=== PATIENT | male | born 1945 | race Hispanic/Latino ===

== ENCOUNTER 2018-06-25 16:19 | Emergency (ER) | payer MEDICARE, BC ==
[2018-06-25 16:30] VITALS: BMI 27.9
--- NOTE | 2018-06-25 16:55 | ED PDOC ---
Lower Extremity Pain/Injury Time Seen by Provider: 06/25/18 16:36 Chief Complaint (Nursing): Lower Extremity Problem/Injury Additional Complaint(s): 73 y/o male with PMH of b/l LEs DVT on blood thinner, BPH, dyslipidemia, chronic lower back pain due to sciatica, depression and anxiety presented to ER c/o one day hx of severe left thigh cramping, pain and swelling. As per patient, pain started last night all the sudden and pain seems like same as his previous DVT pain. Pain is 10/10, radiating from thigh to ankle and associated with thigh swelling. Patient reports he is physically active at home, had surgical left elbow cyst removed last month, denies any SOB, chest pain or dizziness but reports hx of anxiety. Denies any recent long period of immobilization, or trauma to the leg. Patient is currently on Xeralto. 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 [employer] ; daughter Delisa Tel ; [phone] ROS as per HPI, otherwise negative Past Medical History Vital Signs: Last Vital Signs Temp 97.6 F 06/25/18 16:28 Pulse 83 06/25/18 16:28 Resp 18 06/25/18 16:28 BP 116/69 06/25/18 16:28 Pulse Ox 97 06/25/18 16:28 - Medical History PMH: Anxiety, Arthritis, Back Problems, Depression, Deep Vein Thrombosis, HTN, Hypercholesterolemia Denies: HIV, Chronic Kidney Disease - Surgical History Surgical History: Cholecystectomy - Home Medications Home Medications: Ambulatory Orders Medication Instructions Recorded Alprazolam [Xanax] 0.5 mg PO QID PRN 03/07/15 Atenolol [Tenormin] 25 mg PO DAILY 03/07/15 Bifidobacterium Breve/Bifido2 1 tab PO DAILY 03/07/15 [Adult Probiotic] Fenofibrate [Tricor] 400 mg PO HS 03/07/15 Finasteride [Proscar] 5 mg PO HS 03/07/15 Multimineral/Multivitamin 1 tab PO DAILY 03/07/15 [Therapeutic-M Tab] [id number]-6-Ybga Ethyl Esters [OMEGA 3] 500 mg PO DAILY 03/07/15 Oxycodone HCl/Acetaminophen 1 tab PO Q6H PRN 03/07/15 [Percocet 5-325 mg Tablet] Sertraline Hydrochloride 100 mg PO DAILY 03/07/15 [Sertraline] Simvastatin [Zocor] 40 mg PO HS 03/07/15 Tamsulosin HCl 0.4 mg PO HS 03/07/15 Rivaroxaban [Xarelto] 15 mg PO BID #42 tab 03/08/15 - Allergies Allergies/Adverse Reactions: Allergies Allergy/AdvReac Type Severity Reaction Status Date / Time No Known Allergies Allergy Verified 06/25/18 16:33 Wells Criteria for PE - Wells Criteria for Pulmonary Embolism Clinical Signs and Symptoms of DVT: Yes P.E is #1 Diagnosis, or Equally Likely: No Heart Rate >100: No Immobilization at least 3 days;Surgery previous 4 weeks: No Total Score: 3 Review of Systems Constitutional: Negative for: Fever Eyes: Negative for: Pain ENT: Negative for: Ear Pain Cardiovascular: Negative for: Chest Pain, Palpitations, Orthopnea Respiratory: Negative for: Cough, Shortness of Breath Gastrointestinal: Negative for: Nausea, Vomiting, Abdominal Pain, Diarrhea Genitourinary Male: Negative for: Dysuria Musculoskeletal: Positive for: Leg Pain (left thigh ). Negative for: Neck Pain Neurological: Negative for: Weakness, Numbness Psych: Positive for: Anxiety Physical Exam - Physical Exam Appears: Positive for: No Acute Distress Head Exam: Positive for: NORMAL INSPECTION Skin: Positive for: Normal Color, Warm Eye Exam: Positive for: Normal appearance ENT: Positive for: Normal ENT Inspection Neck: Positive for: Normal, Painless ROM Cardiovascular/Chest: Positive for: Regular Rate, Rhythm. Negative for: JVD Respiratory: Positive for: Normal Breath Sounds. Negative for: Decreased Breath Sounds, Accessory Muscle Use, Crackles Gastrointestinal/Abdominal: Positive for: Normal Exam, Soft. Negative for: Tenderness Back: Positive for: Normal Inspection. Negative for: L CVA Tenderness Extremity: Positive for: Normal ROM, Tenderness (left thigh ), Calf Tenderness (mild on left ), Capillary Refill (normal), Swelling (left thigh, no erythema, Hoaman sign negative ). Negative for: Pedal Edema Neurologic/Psych: Positive for: Alert, Oriented. Negative for: Motor/Sensory D eficits - Laboratory Results Result Diagrams: 06/25/18 17:03 06/25/18 17:03 - ECG O2 Sat by Pulse Oximetry: 97 - Progress ED Course And Treament: 73 y/o male with PMH of b/l LEs DVT on blood thinner, BPH, dyslipidemia, chronic lower back pain due to sciatica, depression and anxiety presented to ER c/o one day hx of severe left thigh cramping, pain and swelling. - R/o DVT/ PE - CBC, CMP - EKG - Doppler U/S left lower leg - CT angio PE protocol - reexamine Case discussed with Dr. Gutiérrez CBC, CMP and coag reviewed Low K+ Oral Potassium given - Dopper U/S reviewed: No DVT - EKG normal Case discussed with Brock Re-evaluation Time: 19:01 Condition: Re-examined Disposition - Disposition Forms: [employer] (Bel[place]ian)
[2018-06-25 17:08] LABS: BASO % 0.4 % (0.0-2.0); EOS # 0.2 K/uL (0.0-0.7); EOS % 3.3 % (0.0-4.0); HEMOGLOBIN 15.4 g/dL (12.0-18.0); LYMPH # 1.6 K/uL (1.0-4.3); LYMPH % 22.2 % (20.0-40.0); MEAN CELL VOLUME 88.7 fl (80.0-94.0); MEAN CORPUSCULAR HEMOGLOBIN 29.8 pg (27.0-31.0); MEAN CORPUSCULAR HGB CONC 33.6 g/dL (33.0-37.0); MEAN PLATELET VOLUME 7.7 fl (7.2-11.7); MONO # 0.5 K/uL (0.0-0.8); MONO % 6.2 % (0.0-10.0); NEUT # 5.1 K/uL (1.8-7.0); NEUT % 67.9 % (50.0-75.0); RBC 5.16 Mil/uL (4.40-5.90); RED CELL DISTRIBUTION WIDTH 13.6 % (11.5-14.5); WHITE BLOOD COUNT 7.4 K/uL (4.8-10.8)
[2018-06-25 17:17] LABS: INR 1.3; PROTHROMBIN TIME 14.5 Seconds (9.8-13.1)
[2018-06-25 17:22] LABS: ALB/GLOB RATIO 1.3 (1.0-2.1); ALBUMIN 4.2 g/dL (3.5-5.0); ALT/SGPT 20 U/L (21-72); AST/SGOT 36 U/L (17-59); BLOOD UREA NITROGEN 20 mg/dl (9-20); CALCIUM 9.6 mg/dL (8.4-10.2); GFR NON-AFRICAN AMERICAN 59
[2018-06-25] MEDS ORDERED: Potassium Chloride 20 mEq ER Tab PO ONE (17:47)
[2018-06-25] MEDS ORDERED: Iodixanol 320 MG/ML 100 ML BOTTLE IV ONE (18:11)
[2018-06-25] MEDS ORDERED: Sodium Chloride 0.9% 50 ML IV ONE (18:12)
--- NOTE | 2018-06-25 18:22 | US ---
Date of service: 06/25/2018 HISTORY: Left leg pain h/o DVT. PRIORS: None. FINDINGS: 2-D, color and duplex Doppler analysis of the lower extremity venous circulation using routine protocol from the femoral veins through the popliteal veins. Venous compressibility: Normal. Flow and augmentation patterns: Normal. Visualized veins upper third of calf: Normal. Blue cyst: None. IMPRESSION: No sonographic or Doppler evidence for DVT in left lower extremity.
[2018-06-25 21:34] VITALS: BP 106/65; PULSE 74; RESP 18
--- NOTE | 2018-06-25 21:38 | ED PDOC ---
- Laboratory Results Result Diagrams: 06/25/18 17:03 06/25/18 17:03 Lab Results: PT 14.5 Seconds (9.8-13.1) H 06/25/18 17:03 INR 1.3 06/25/18 17:03 D-Dimer, Quantitative < 200 ng/mlDDU (0-230) 06/25/18 18:50 Total Bilirubin 1.7 mg/dl (0.2-1.3) H 06/25/18 17:03 AST 36 U/L (17-59) 06/25/18 17:03 ALT 20 U/L (21-72) L 06/25/18 17:03 Alkaline Phosphatase 57 U/L (38-126) 06/25/18 17:03 Total Protein 7.4 G/DL (6.3-8.2) 06/25/18 17:03 Albumin 4.2 g/dL (3.5-5.0) 06/25/18 17:03 Globulin 3.3 gm/dL (2.2-3.9) 06/25/18 17:03 Albumin/Globulin Ratio 1.3 (1.0-2.1) 06/25/18 17:03 - ECG O2 Sat by Pulse Oximetry: 97 Medical Decision Making Medical Decision Making: US read as no new DVT CTA chest reveals no PE but ? infiltrate vs atelectasis. Pt has no sxs of URI/pneumonia so will not tx with antibiotics Disposition - Clinical Impression Clinical Impression: Muscle strain - POA Present On Arrival: None - Disposition Referrals: Meliton Bradshaw MD [Family Provider] - Disposition: Routine/Home Disposition Time: 21:36 Condition: FAIR Instructions: Muscle Strain Forms: [facility] (Malaysian)
[2018-06-25 21:48] VITALS: TEMP 97.5; O2SAT 100
--- NOTE | 2018-06-26 09:03 | CT ---
Date of service: 06/25/2018 PROCEDURE: CT Chest with contrast (Pulmonary Angiogram) HISTORY: Hx of DVT, possible new DVT COMPARISON: CT angiography of the pulmonary arteries performed 08/06/2015. TECHNIQUE: Axial computed tomography images were obtained of the chest in the pulmonary arterial phase of enhancement. Coronal and sagittal reformatted images were created and reviewed. Intravenous contrast dose: 99 mL Visipaque 320 Radiation dose: Total exam DLP = 347.74 mGy-cm. This CT exam was performed using one or more of the following dose reduction techniques: Automated exposure control, adjustment of the mA and/or kV according to patient size, and/or use of iterative reconstruction technique. FINDINGS: PULMONARY ARTERIES: Unremarkable. No pulmonary embolism. AORTA: No acute findings. No thoracic aortic aneurysm. No aortic atherosclerotic calcification or mural plaque present. LUNGS: 6 mm right middle lobe pulmonary nodule. No mass or pulmonary consolidation. PLEURAL SPACES: Unremarkable. No effusion or pneumothorax. HEART: Unremarkable. No cardiomegaly. No significant pericardial effusion. LYMPH NODES: Stable bilateral hilar lymph nodes. BONES, CHEST WALL: Unremarkable. No fracture or destructive lesion OTHER FINDINGS: Unremarkable. IMPRESSION: Unremarkable CT pulmonary angiogram. No pulmonary embolus. 6 mm right middle lobe pulmonary nodule.
--- NOTE | 2018-06-26 13:13 | CARD ---
APPROVED REPORT Date of service: 06/25/2018 EKG Measurement Heart [id number] CO [id number] <Conclusion> Normal sinus rhythm Normal ECG
== END 2018-06-25 21:48 | disposition home or self-care (01) ==
LOC: H.ER 16:19
DX: T14.8XXA Other injury of unspecified body region, initial encounter (principal); Z86.59 Personal history of other mental and behavioral disorders; I10 Essential (primary) hypertension; Z86.718 Personal history of other venous thrombosis and embolism; E78.00 Pure hypercholesterolemia, unspecified
CPT/HCPCS: 71275; 80053; 85025; 85378; 85610; 93005; 93971; 99284; Q9967